=== PATIENT | male | born 2000 | race Two or more races ===

== ENCOUNTER 2024-02-26 09:35 | Emergency (ER) | payer OTHER ==
[~2024-02-26] VITALS: Ht 175.3 cm; Wt 83.2 kg
[2024-02-26 10:28] VITALS: BP 130/87; PULSE 57; RESP 18; TEMP 98.7; O2SAT 100
== END 2024-02-26 11:10 | disposition home or self-care (01) ==
LOC: ER 09:35
DX: S61.011A Laceration without foreign body of right thumb without damage to nail, initial encounter (principal); W45.8XXA Other foreign body or object entering through skin, initial encounter; Y93.89 Activity, other specified; Y92.89 Other specified places as the place of occurrence of the external cause; Y99.0 Civilian activity done for income or pay
CPT/HCPCS: 12001